=== PATIENT | male | born 1990 | race Hispanic/Latino ===

== ENCOUNTER 2019-09-14 11:27 | Emergency (ER) | payer OTHER ==
[~2019-09-14] VITALS: Ht 170.2 cm; Wt 113.4 kg
--- OUTSIDE RECORDS SUMMARY | ~2019-09-14 | XMS | Encounter Summary ---
Demographics + + + | Address | [address] | | | [place] [address] | + + + | Home Phone | | + + + | Preferred Language | Unknown | + + + | Marital Status | Unknown | + + + | Temple Affiliation | Unknown | + + + | Race | Unknown | + + + | Ethnic Group | Unknown | + + + Author + + + | Author | [facility] | | | and [place] | + + + | Organization | [facility] | | | and [place] | + + + | Address | Unknown | + + + | Phone | Unavailable | + + + Support + + +---------+ + | Name | Relationship | Address | Phone | + + +---------+ + | Clarita Swenson | ECON | Unknown | | + + +---------+ + Care Team Providers + +------+ + | Care Flavor Maker Name | Role | Phone | + +------+ + | No, Physician | PCP | Unavailable | + +------+ + Reason for Referral Diagnostic/Screening (Routine) + +--------+ + + + + | Status | Reason | Specialty | Diagnoses / | Referred By | Referred To | | | | | Procedures | Contact | Contact | + +--------+ + + + + | Authorized | | | Diagnoses | Julian, | [facility] | | | | | Dyspnea on | Abdulkadir , | [facility] | | | | | exertion | MD [address] | | | | | Spontaneous | [place] | [address] | | | | | ASD closure | [address] | [place], [place] | | | | | Procedures | [place], [place] | [address] | | | | | ECHO | [address] | Phone: | | | | | Complete | Phone: | [phone] | | | | | | [phone] | Fax: | | | | | | Fax: | [phone] | | | | | | [phone] | | + +--------+ + + + + Reason for Visit + + + | Reason | Comments | + + + | Follow-up | 6 weeks with tm and holter | + + + Evaluate & Treat (Routine) +--------+--------+ + + + + | Status | Reason | Specialty | Diagnoses / | Referred By | Referred To | | | | | Procedures | Contact | Contact | +--------+--------+ + + + + | Closed | | Cardiology | Diagnoses | [place], | [place], | | | | | | [facility] | Abdulkadir Lozada MD | | | | | Palpitations | [address] | [address] | | | | | Procedures | [address] | [place] | | | | | FOLLOW UP | [place], | [place] | | | | | | [place] [address] | [facility] [place] | | | | | | Phone: | [address] Phone: | | | | | | [phone] | [phone] | | | | | | Fax: | Fax: | | | | | | [phone] | [phone] | +--------+--------+ + + + + Encounter Details +--------+---------+ + + + | Date | Type | Department | Care Team | Description | +--------+---------+ + + + | 08/01/ | Office | [facility] | Abdulkadir Zhang, | Palpitations | | 2019 | Visit | CARDIOLOGY [place] | MD [address] | (Primary Dx); | | | | [address] | [place] [facility], | Dyspnea on exertion; | | | | [address] | [place] [address] | Chest pain, | | | | [place], [place] | [phone] | non-cardiac; | | | | [address] | | Depression, | | | | [phone] | | unspecified | | | | | | depression type; | | | | | | Preop cardiovascular | | | | | | exam; Spontaneous | | | | | | ASD closure | +--------+---------+ + + + Social History + +-------+ +--------+------+ | Tobacco Use | Types | Packs/Day | Years | Date | | | | | Used | | + +-------+ +--------+------+ | Never Smoker | | | | | + +-------+ +--------+------+ + +---+---+---+ | Smokeless Tobacco: | | | | | Never Used | | | | + +---+---+---+ + + +---------+ + | Alcohol Use | Drinks/Week | oz/Week | Comments | + + +---------+ + | Yes | | | | + + +---------+ + + + + + | Alcohol Habits | Answer | Date Recorded | + + + + | How often do you have a drink containing | Monthly or less | 06/06/2019 | | alcohol? | | | + + + + | How many drinks containing alcohol do you | Not asked | | | have on a typical day when you are | | | | drinking? | | | + + + + | How often do you have six or more drinks on | Not asked | | | one occasion? | | | + + + + + + + | Sex Assigned at | Date Recorded | | | | + + + | Not on file | | + + + + + + + | Job Start Date | Occupation | Industry | + + + + | Not on file | Not on file | Not on file | + + + + + + + + | Travel History | Travel Start | Travel End | + + + + + + | No recent travel history available. | + + documented as of this encounter Last Filed Vital Signs + + + + + | Vital Sign | Reading | Time Taken | Comments | + + + + + | Blood Pressure | 110/60 | 08/01/2019 3:32 PM | | | | | PST | | + + + + + | Pulse | 70 | 08/01/2019 3:32 PM | | | | | PST | | + + + + + | Temperature | - | - | | + + + + + | Respiratory Rate | - | - | | + + + + + | Oxygen Saturation | 97% | 08/01/2019 3:32 PM | | | | | PST | | + + + + + | Inhaled Oxygen | - | - | | | Concentration | | | | + + + + + | Weight | 112.7 kg (248 lb 6.4 | 08/01/2019 3:32 PM | | | | oz) | PST | | + + + + + | Height | 170.2 cm (5' 7") | 08/01/2019 3:32 PM | | | | | PST | | + + + + + | Body Mass Index | 38.9 | 08/01/2019 3:32 PM | | | | | PST | | + + + + + documented in this encounter Progress Notes Abdulkadir Zhang MD - 08/01/2019 3:10 PM PSTFormatting of this note might be different fro m the original. Subjective: Patient ID: Silverio Finch is a 28 y.o. male. Patient's medications, allergies, past medical, surgical, social and family histories were obtained and reviewed as appropriate. MI Sawyer this time accompanied by his mother, returned to the office for a follow up visit fo r his palpitations, which have been present "for as long as I can remember", but in the last 2-3 years, it has been much worse, to the point where he stated that he is unable to work b ecause of these symptoms. Previously, he worked doing "under the table manual labor". He d escribes lightheadedness and dyspnea with heavy exertion, and feeling "irregular heartbeats "with activities such as chopping or carrying wood, or walking up a "long flight of stairs". He also notes that his "heart starts acting up when I get stressed out ", citing traffic o r bills to pay. He also has atypical chest pain, describing sharp, fleeting pains in the le ft parasternal border, fifth-sixth intercostal space, that last 5 to 10 seconds, whereas pre viously, they lasted 1 to 2 seconds. He has never sought any rectal evaluation for these sy mptoms. 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 "they said I wouldn't make it through the night", "flat-lined a couple of times". 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 He was evaluated with a 4 8-hour Holter monitor and exercise stress test to try and reproduce his symptoms and make e diagnosis. Both were normal, and the symptoms he reported on his Holter (5 episodes of ch est pain/discomfort, 2 episodes of dizziness, 3 episodes palpitations with the chest discomf ort) all occurred in NSR. I heard an echocardiogram today, although I expect that he had an ASD that has closed spontaneously. He appears to have significant depression, which may be the major cause of his symptoms, was treated with medications for this problem approximately 10 years ago. ROS CONSTITUTIONAL: 40 lb weight decrease in 2 months 6045-4665, with gastroenteritis; denies recent fever, chills, night sweats, c/o fatigue, sleeps poorly NEUROLOGIC: No history of CVA, TIA, has Migraines, has "pulsating" right temporal pains, d enies seizures, had a syncopal event 2018 "from exhaustion", chopping frozen wood in the sno w, was unconscious 10 minutes. He has orthostatic dizziness, lightheadedness. No numbness, tingling, paresthesias. EYES: No amaurosis, diplopia, recent visual changes, cataracts or glaucoma ENT: Mild hearing loss, has occasional tinnitus, had mild epistaxis several times last wed, denies dysphagia ENDOCRINE: No history of diabetes. No history of thyroid disorders. He has a history of V itamin D Deficiency, no other endocrine problems. No excessive hunger, notes increased thir st. PULMONARY/SLEEP: He has Dyspnea on exertion, had SOB 06/05/19 while eating, also noted "aram rything was slanted to the right", 20 minutes later "everything started slanting to the left , eventually evened out" with 2 minutes of controlled breathing. He denies orthopnea, parox ysmal nocturnal dyspnea. No history of asthma, emphysema. ? history of pneumonia - he is no t sure. Denies significant snoring, has been told of apnea by his mother, 5-10 seconds and then gasps for air. He denies daytime somnolence. Sleep is not refreshing. He has insomni a, trouble falling asleep and staying asleep (uses the bathroom 1-3x per night). CARDIOVASCULAR: sharp, fleeting chest pain, as above. No history of CAD. No history of hea rt failure. No history of cardiac arrhythmias, but has noted Palpitations with exertion for several years, does not work because of this. He has a history of a heart Murmur, no histor y of rheumatic fever. No history of hypertension, hyperlipidemia. No edema, no claudicatio n symptoms. No h/o an AAA. --48-hour Holter (06/19/2019): NSR throughout, rare PACs, PVCs, no clinically significant ar rhythmias. His reported symptoms (5 episodes of chest pain/discomfort, 2 episodes of dizzin ess, 3 episodes palpitations with the chest discomfort) all occurred in NSR -- Exercise Stress Test (06/19/19): Normal. He exercised 7 minutes, 2 seconds, 10.1 METS, m ax HR 179 bpm, 92% MPHR, Max BP 138/61, DP 24,702, stopped due to fatigue and leg discomfort , no chest pain, no ST changes, no arrhythmias. Son treadmill score 7, low risk. GASTROINTESTINAL: No recent abdominal pain, nausea, vomiting or diarrhea, had gastroenteri tis Aug-Sep, 2017-. Denies PUD, melena, hematochezia, hepatitis. RENAL/: No history of kidney disease. No dysuria, hematuria, urinary urgency, hesitancy . HEMATOLOGY/ONCOLOGY: No h/o bleeding disorders, DVT, PE. Denies easy bruisability or ble eding. No history of anemia, transfusions. No history of cancer. MUSCULOSKELETAL: No myalgias, has left knee and right hip arthralgias. No history of rheu matologic or autoimmune diseases. CUTANEOUS: Right wrist and index finger rashes, no pruritus, lesions. PSYCHIATRIC: He has a history of Depression 2007-, was on medication, Anxiety, denies any other psychiatric problems. Past Medical History: Diagnosis Date Depression Heart murmur Palpitations Past Surgical History: Procedure Laterality Date GALLBLADDER SURGERY 2007 KNEE ARTHROSCOPY Left 2010 WISDOM TOOTH EXTRACTION Family History Problem Relation Age of Onset Alcohol abuse Mother Alcohol abuse Father Alcohol abuse Maternal Grandfather Arrhythmia Maternal Uncle Heart failure Maternal Uncle Coronary artery disease Maternal Uncle 56 [place] Liver disease Maternal Aunt Alcohol abuse Maternal Aunt Kidney disease Maternal Uncle Social History Socioeconomic History Marital status: Unknown Spouse name: Not on file Number of children: Not on file Years of education: Not on file Highest education level: Not on file Occupational History Occupation: unemployed, prior manual labor "under the table" Comment: because of his palpitations Social Needs Financial resource strain: Not on file Food insecurity: Worry: Not on file Inability: Not on file Transportation needs: Medical: Not on file Non-medical: Not on file Tobacco Use Smoking status: Never Smoker Smokeless tobacco: Never Used Substance and Sexual Activity Alcohol use: Yes Frequency: Monthly or less Drug use: Never Sexual activity: Not on file Lifestyle Physical activity: Days per week: Not on file Minutes per session: Not on file Stress: Not on file Relationships Social connections: Talks on phone: Not on file Gets together: Not on file Attends scientology service: Not on file Active member of club or organization: Not on file Attends meetings of clubs or organizations: Not on file Relationship status: Not on file Intimate partner violence: Fear of current or ex partner: Not on file Emotionally abused: Not on file Physically abused: Not on file Forced sexual activity: Not on file Other Topics Concern Not on file Social History Narrative Not on file Allergies Allergen Reactions Penicillins Anaphylaxis,Hives Intolerance No active intolerances/contraindications No current outpatient medications on file. No current facility-administered medications for this visit. Objective: BP 110/60 | Pulse 70 | Ht 1.702 m (5' 7") | Wt 112.7 kg (248 lb 6.4 oz) | SpO2 97% | B IA 38.90 kg/m PHYSICAL EXAM GENERAL: Well developed, well nourished, in no distress. Appears approximately stated age . HEENT: Normocephalic, atraumatic. EYES: PERRL, sclerae anicteric, no xanthelsasmas MOUTH: Oral mucosae moist, dentition adequate, no lesions noted NECK: No JVD, lymphadenopathy, thyromegaly, bruits. Carotid pulses are 2+ bilaterally LUNGS: Clear bilaterally, with no rales, rhonchi or wheezing noted, respirations unlabored HEART: Nondisplaced PMI, regular rate and rhythm, S1, S2 normal. No murmurs, rubs or gall ops noted. ABDOMEN: Soft, nontender, no organomegaly, masses or bruits. Bowel sounds are normal in a ll 4 quadrants. The abdominal aortic pulsation is not palpable. EXTREMITIES: No edema. Radial pulses 2+ bilaterally. Femoral pulses are 2+ bilaterally wi thout bruits. DP and PT pulses are 2+ bilaterally. SKIN: Warm and dry, capillary refill is normal, normal erythematous rash in the right wris t, no other lesions. Fairly prominent acne scars on the neck and face. NEUROLOGIC: Awake, alert and oriented x 3. No focal motor deficits. PSYCHIATRIC: Appropriate, affect appears flat Assessment: Silverio was seen today for follow-up. Diagnoses and all orders for this visit: Palpitations Dyspnea on exertion - ECHO Complete; Future Chest pain, non-cardiac Depression, unspecified depression type Preop cardiovascular exam Spontaneous ASD closure - ECHO Complete; Future Plan: Follow up PRN documented in this en counter Plan of Treatment + + +--------+ + + | Name | Type | Priori | Associated Diagnoses | Order Schedule | | | | ty | | | + + +--------+ + + | ECHO Complete | Echocardiog | Routin | Dyspnea on | Expected: | | | vanessa | e | exertion | 08/15/2019, Expires: | | | | | Spontaneous ASD | 08/01/2020 | | | | | closure | | + + +--------+ + + documented as of this encounter Visit Diagnoses + + | Diagnosis | + + | Palpitations - Primary | + + | Dyspnea on exertion Other dyspnea and respiratory abnormality | + + | Chest pain, non-cardiac Other chest pain | + + | Depression, unspecified depression type | + + | Preop cardiovascular exam Pre-operative cardiovascular examination | + + | 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
--- OUTSIDE RECORDS SUMMARY | ~2019-09-14 | XMS | Clinical Summary ---
Demographics + + + | Address | [address] | | | [place] [address] | + + + | Home Phone | | + + + | Preferred Language | Unknown | + + + | Marital Status | Unknown | + + + | Buddhist Affiliation | Unknown | + + + | Race | Unknown | + + + | Ethnic Group | Unknown | + + + Author + + + | Author | [facility] (Historical as of | | | 05-06-19) | + + + | Organization | [facility] (Historical as of | | | 05-06-19) | + + + | Address | Unknown | + + + | Phone | Unavailable | + + + Support + + +---------+ + | Name | Relationship | Address | Phone | + + +---------+ + | Clarita Swenson | ECON | Unknown | | + + +---------+ + Care Team Providers + +------+ + | Care Wiping Rag Washer Name | Role | Phone | + +------+ + | Lokesh Duran | PP | | + +------+ + Allergies Not on File Current Medications Not on file Active Problems Not on file Social History + +-------+ +--------+------+ | Tobacco Use | Types | Packs/Day | Years | Date | | | | | Used | | + +-------+ +--------+------+ | Never Assessed | | | | | + +-------+ +--------+------+ + + + | Sex Assigned at | Date Recorded | | | | + + + | Not on file | | + + + Plan of Treatment + + + + + | Health Maintenance | Due Date | Last Done | Comments | + + + + + | Vaccine: | | | | | Dtap/Tdap/Td (1 - | 1 | | | | Tdap) | | | | + + + + + | Vaccine: Influenza | | | | | (#1) | 9 | | | + + + + + Results Not on filefrom Last 3 Months Insurance + +--------+ +------+-------+ + | Payer | Benefi | Subscriber | Type | Phone | Address | | | t Plan | ID | | | | | | / | | | | | | | Group | | | | | + +--------+ +------+-------+ + | [employer] | YELLOW | | | | | | PLANS | [place] | | | | | + +--------+ +------+-------+ + | MEDICAID | [place] | [id number] | | | [address] | | | N | | | | [place] | | | [place] | | | | [address] | | | MEDICAL LAB SPECIALIST | | | | | + +--------+ +------+-------+ + + +--------+ +--------+ + + | Guarantor Name | Accoun | Relation to | Date | Phone | Billing Address | | | t Type | Patient | of | | | | | | | | | | + +--------+ +--------+ + + | [place] | Person | Self [birth year] | Home: | [address] | | [place] | [place] | | 1990 | [phone] [place] | | | [place] | | | [phone] | [address] | + +--------+ +--------+ + +"
--- OUTSIDE RECORDS SUMMARY | ~2019-09-14 | XMS | Encounter Summary ---
Demographics + + + | Address | [address] | | | [place] [address] | + + + | Home Phone | | + + + | Preferred Language | Unknown | + + + | Marital Status | Unknown | + + + | Zoroastrian Affiliation | Unknown | + + + | Race | Unknown | + + + | Ethnic Group | Unknown | + + + Author + + + | Author | [facility] | | | and [place] | + + + | Organization | [facility] | | | and [...] Team Providers + +------+ + | Care Appliance Mechanic Name | Role | Phone | + [...] | Authorized | | | Diagnoses | [place], | [facility] | | | | | Dyspnea on | Abdulkadir , | [facility] | | | | | exertion | MD [address] | | | | | Spontaneous | [place] | [address] | | | | | ASD closure | [address] | [place], [place] | | | | | Procedures | [place], [place] | [address] | | | | | ECHO | [address] | Phone: | | | | | Complete | Phone: | [phone] | | | | | | [phone] | Fax: | | | | | | Fax: | [phone] | | | | | | [phone] | | + +--------+ + + + [...] | | | | | Palpitations | [address] | [address] | | | | | Procedures | [address] | [place] | | | | | FOLLOW UP | [place], | [place] | | | | | | [place] [address] | [facility] [place] | | | | | | Phone: | [phone] Phone: | | | | | | [phone] | [phone] | | | | | | Fax: | Fax: | | | | | | [phone] | [phone] | +--------+--------+ + + + + Encounter Details +--------+---------+ + + + | Date | Type | Department | Care Team | Description | +--------+---------+ + + + | 08/01/ | Office | [facility] | Abdulkadir Zhang, | Palpitations | | 2019 | Visit | CARDIOLOGY [place] | MD [address] | (Primary Dx); | | | | [address] | [place] [facility], | Dyspnea on exertion; | | | | [address] | [place] [address] | Chest pain, | | | | [place], [place] | [phone] | non-cardiac; | | | | [address] | | Depression, | | | | [phone] | | unspecified | | | | [...] 40 lb weight decrease in 2 months 7053-8724, with gastroenteritis; denies recent fever, chills, night [...] Uncle Coronary artery disease Maternal Uncle 56 [place] Liver disease Maternal Aunt Alcohol abuse Maternal [...] file Gets together: Not on file Attends mormonism service: Not on file Active member of [...] 6.4 oz) | SpO2 97% | B CO 38.90 kg/m PHYSICAL EXAM GENERAL: Well developed, [...]
--- OUTSIDE RECORDS SUMMARY | ~2019-09-14 | XMS | Encounter Summary ---
Demographics + + + | Address | [address] | | | [place] [address] | + + + | Home Phone | | + + + | Preferred Language | Unknown | + + + | Marital Status | Unknown | + + + | Yazdanism Affiliation | Unknown | + + + | Race | Unknown | + + + | Ethnic Group | Unknown | + + + Author + + + | Author | [facility] | | | and [place] | + + + | Organization | [facility] | | | and [...] Team Providers + +------+ + | Care Pharmaceutical Sales Name | Role | Phone | + +------+ + | No, Physician | PCP | Unavailable | + +------+ + Reason for Visit + + + | Reason | Comments | + + + | New Patient | palpitations | + + + Evaluate & Treat (Routine) + +--------+ + + + + | Status | Reason | Specialty | Diagnoses / | Referred By | Referred To | | | | | Procedures | Contact | Contact | + +--------+ + + + + | Authorized | | | Diagnoses | [place], | [place], | | | | | | [facility] | Abdulkadir Lozada MD | | | | | Palpitations | [address] | [address] | | | | | Procedures | ERIN [address]YS | [address]ACIA [address]EVE | | | | | CONSULT | [place] | [place] | | | | | | [place] [address] | [place], [place] | | | | | | Phone: | [address] Phone: | | | | | | [phone] | [phone] | | | | | | Fax: | Fax: | | | | | | [phone] | [phone] | + +--------+ + + + + Encounter Details +--------+---------+ + + + | Date | Type | Department | Care Team | Description | +--------+---------+ + + + | 06/06/ | Office | [facility] | Abdulkadir Zhang, | Palpitations | | 2019 | Visit | CARDIOLOGY [place] | MD [address] | (Primary Dx); Chest | | | | [address] | [place] [facility], | pain, unspecified | | | | [address] | [place] [address] | type; Atypical chest | | | | [place], [place] | [phone] | pain; Dyspnea on | | | | [address] | | exertion; | | | | [phone] | | Depression, | | | | | | unspecified | | | | | | depression type | +--------+---------+ + + + Social History [...] + + + | Blood Pressure | 130/74 | 06/06/2019 1:44 PM | | | | | PDT | | + + + + + | Pulse | 80 | 06/06/2019 1:44 PM | | | | | PDT | | + + + + + | Temperature | - | - | | + + + + + | Respiratory Rate | 18 | 06/06/2019 1:44 PM | | | | | PDT | | + + + + + | Oxygen Saturation | 95% | 06/06/2019 1:44 PM | | | | | PDT | | + + + + + | Inhaled Oxygen | - | - | | | Concentration | | | | + + + + + | Weight | 112.8 kg (248 lb | 06/06/2019 1:44 PM | | | | 11.2 oz) | PDT | | + + + + + | Height | 170.2 cm (5' 7") | 06/06/2019 1:44 PM | | | | | PDT | | + + + + + | Body Mass Index | 38.95 | 06/06/2019 1:44 PM | | | | | PDT | | + + + + + documented in this encounter Progress Notes Abdulkadir Zhang MD - 06/06/2019 1:30 PM PDTFormatting of this note might be different fro m the original. Subjective: Patient ID: Silverio Finch is a 28 y.o. male. HPI Patient's medications, allergies, past medical, surgical, social and family histories were obtained and reviewed as appropriate. Silverio was referred for palpitations. This has been present "for as long as I can remember "but in the last 2-3 years, it has been much worse, to the point where he is unable to work because of these symptoms. Previously, he worked doing "under the table manual labor". He describes lightheadedness and dyspnea with heavy exertion, and feeling "irregular heartbeat s "with activities such as chopping or carrying wood, or walking up a "long flight of stairs ". He also notes that his "heart starts acting up when I get stressed out ", citing traffic or bills to pay. He also has atypical chest pain, describing sharp, fleeting pains in the left parasternal border, fifth-sixth intercostal space, that last 5 to 10 seconds, whereas p reviously, they lasted 1 to 2 seconds. He has never sought any rectal evaluation for these symptoms. 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 "they said I wouldn't make it through the night", "flat-lined a couple of times". 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 Will be evaluated with a 24-hour Holter monitor and exercise stress test to try and reproduce his symptoms and make t he diagnosis. I considered, but deferred ordering an echocardiogram at this time. I will s ee him back after the above tests. Also appears to have significant depression, which may b e the major cause of his symptoms, was treated with medications for this problem approximate ly 10 years ago. Is also looking at having surgery on his left lower jaw, but does not know why this is needed. Past Medical History: Diagnosis Date Heart murmur Palpitations Past Surgical History: Procedure Laterality Date GALLBLADDER SURGERY 2008 KNEE ARTHROSCOPY Left 2010 WISDOM TOOTH EXTRACTION Family History Problem Relation Age of Onset Alcohol abuse Mother Alcohol abuse Father Alcohol abuse Maternal Grandfather Arrhythmia Maternal Uncle Heart failure Maternal Uncle Coronary artery disease Maternal Uncle 56 [place] Liver disease Maternal Aunt Alcohol abuse Maternal Aunt Kidney disease Maternal Uncle Social History Socioeconomic History Marital status: Unknown Spouse name: Not on file Number of children: Not on file Years of education: Not on file Highest education level: Not on file Social Needs Financial resource strain: Not on file Food insecurity - worry: Not on file Food insecurity - inability: Not on file Transportation needs - medical: Not on file Transportation needs - non-medical: Not on file Occupational History Occupation: unemployed, prior manual labor "under the table" Comment: because of his palpitations Tobacco Use Smoking status: Never Smoker Smokeless tobacco: Never Used Substance and Sexual Activity Alcohol use: Yes Frequency: Monthly or less Drug use: Never Sexual activity: Not on file Other Topics Concern Not on file Social History Narrative Not on file Allergies Allergen Reactions Penicillins Anaphylaxis,Hives Intolerance No active intolerances/contraindications Current Outpatient Medications Medication Sig Dispense Refill melatonin 200 mcg TABS Take 400 mcg by mouth nightly as needed. No current facility-administered medications for this visit. ROS CONSTITUTIONAL: 40 lb weight decrease in 2 months 3004-1782, with gastroenteritis; denies recent fever, chills, night [...] claudicatio n symptoms. No h/o an AAA. GASTROINTESTINAL: No recent abdominal pain, nausea, vomiting or diarrhea, had gastroenteri tis Sep, 2017-. Denies PUD, melena, hematochezia, hepatitis. RENAL/: [...] medication, Anxiety, denies any other psychiatric problems. Objective: BP 130/74 | Pulse 80 | Resp 18 | Ht 1.702 m (5' 7") | Wt 112.8 kg (248 lb 11.2 oz) | S pO2 95% | BMI 38.95 kg/m PHYSICAL EXAM GENERAL: Well developed, well [...] motor deficits. PSYCHIATRIC: Appropriate, affect appears flat EKG: Normal sinus rhythm, rate 75, normal EKG, no significant change compared to his previo us tracing done 10/12/2018. Assessment: Silverio was seen today for new patient. Diagnoses and all orders for this visit: Palpitations - ECG 12 lead - Stress ECG; Future - Holter monitor - 24 hour; Future Chest pain, unspecified type - ECG 12 lead Atypical chest pain - Stress ECG; Future - Holter monitor - 24 hour; Future Dyspnea on exertion - Stress ECG; Future - Holter monitor - 24 hour; Future Depression, unspecified depression type Plan: Follow up after the above tests. documented in this encounter Plan of Treatment + +------+--------+ + + | Name | Type | Priori | Associated Diagnoses | Order Schedule | | | | ty | | | + +------+--------+ + + | Stress ECG | ECG | Routin | Palpitations | Expected: | | | | e | Atypical chest pain | 06/13/2019, Expires: | | | | | Dyspnea on exertion | 06/06/2020 | + +------+--------+ + + | Holter monitor - 24 | ECG | Routin | Palpitations | Expected: | | hour | | e | Atypical chest pain | 06/13/2019, Expires: | | | | | Dyspnea on exertion | 06/06/2020 | + +------+--------+ + + documented as of this encounter Procedures + +--------+ + + + | Procedure Name | Priori | Date/Time | Associated Diagnosis | Comments | | | ty | | | | + +--------+ + + + | ECG 12 LEAD | Routin | 06/06/2019 | Palpitations | Results for this | | | e | 1:50 PM | Chest pain, | procedure are in the | | | | PDT | unspecified type | results section. | + +--------+ + + + documented in this encounter Results ECG 12 lead (06/06/2019 1:50 PM PDT) + + + + + + | Component | Value | Ref Range | Performed | Pathologist | | | | | At | Signature | + + + + + + | VENTRICULAR | 75 | BPM | [facility] | | | RATE EKG | | | | | + + + + + + | ATRIAL RATE | 75 | BPM | [facility] | | + + + + + + | P-R | 146 | ms | [facility] | | | INTERVAL | | | | | + + + + + + | QRS | 92 | ms | [facility] | | | DURATION | | | | | + + + + + + | Q-T | 380 | ms | [facility] | | | INTERVAL | | | | | + + + + + + | Q-T | 424 | ms | [facility] | | | INTERVAL | | | | | | (CORRECTED) | | | | | + + + + + + | P WAVE AXIS | 45 | degrees | [facility] | | + + + + + + | QRS AXIS | 31 | degrees | [facility] | | + + + + + + | T AXIS | 19 | degrees | [facility] | | + + + + + + | INTERPRETAT | Normal sinus | | [facility] | | | ION TEXT | rhythmNormal ECGNo | | | | | | previous ECGs | | | | | | availablePlease refer to | | | | | | Providers office visit | | | | | | note for Providers | | | | | | Interpretation.Confirmed | | | | | | by [facility] [place] Read Only, | | | | | | [facility] Anastacia ([id number]), | | | | | | city editor Isiah Abbott | | | | | | ([id number]) on 06/06/2019 | | | | | | 2:24:04 PM | | | | + + + + + + + + | Specimen | + + | | + + + + + | Narrative | Performed At | + + + | | | + + + + +---------+ + + | Performing | Address | City/State/Zipcode | Phone Number | | Organization | | | | + +---------+ + + | [facility] | | | | + +---------+ + + documented in this encounter Visit Diagnoses + + | Diagnosis | + + | Palpitations - Primary | + + | Chest pain, unspecified type | + + | Atypical chest pain Other chest pain | + + | Dyspnea on exertion Other dyspnea and respiratory abnormality | + + | Depression, unspecified depression type | + + documented in this encounter
--- OUTSIDE RECORDS SUMMARY | ~2019-09-14 | XMS | Encounter Summary ---
Demographics + + + | Address | [address] | | | [place] [address] | + + + | Home Phone | | + + + | Preferred Language | Unknown | + + + | Marital Status | Unknown | + + + | Restorationism Affiliation | Unknown | + + + | Race | Unknown | + + + | Ethnic Group | Unknown | + + + Author + + + | Author | [facility] | | | and [place] | + + + | Organization | [facility] | | | and [...] Team Providers + +------+ + | Care Costume Rental Clerk Name | Role | Phone | + [...] | | | | | Palpitations | [address] | [address] | | | | | Procedures | [address] | [address]ACIA [address] | | | | | CONSULT | [place] | [place] [address] | | | | | | [place] [address] | [place], [place] | | | | | | Phone: | [phone] Phone: | | | | | | [phone] | [phone] | | | | | | Fax: | Fax: | | | | | | [phone] | [phone] | + +--------+ + + + + Encounter Details +--------+---------+ + + + | Date | Type | Department | Care Team | Description | +--------+---------+ + + + | 06/06/ | Office | [facility] | Abdulkadir Zhang, | Palpitations | | 2019 | Visit | CARDIOLOGY [place] | MD [address] | (Primary Dx); Chest | | | | [address] | [place] [facility], | pain, unspecified | | | | [address] | [place] [address] | type; Atypical chest | | | | [place], [place] | [phone] | pain; Dyspnea on | | | | [address] | | exertion; | | | | [phone] | | Depression, | | | | [...] Uncle Coronary artery disease Maternal Uncle 56 [place] Liver disease Maternal Aunt Alcohol abuse Maternal [...] 40 lb weight decrease in 2 months 0774-1978, with gastroenteritis; denies recent fever, chills, night [...] | | | | | by [facility] [place] [facility], | | | | | | [facility] Anastacia ([id number]), | | | | | | editor in chief Isiah Abbott | | | | | | ([phone]) on 06/06/2019 | | | | | [...]
--- OUTSIDE RECORDS SUMMARY | ~2019-09-14 | XMS | Clinical Summary ---
Demographics + + + | Address | [address] | | | [place] [address] | + + + | Home Phone | | + + + | Preferred Language | Unknown | + + + | Marital Status | Unknown | + + + | Mandaen Affiliation | Unknown | + + + | Race | Unknown | + + + | Ethnic Group | Unknown | + + + Author + + + | Author | [facility] | | | and [place] | + + + | Organization | [facility] | | | [...] Team Providers + +------+ + | Care Brass Wind Instrument Maker Name | Role | Phone | + +------+ + | No, Physician | PCP | Unavailable | + +------+ + Allergies + + + + + + | Active Allergy | Reactions | Severity | Noted | Comments | | | | | Date | | + + + + + + | Penicillins | Anaphylaxis, Hives | High | 06/06/20 | | | | | | 19 | | + + + + + + Medications No known medications Active Problems + + + | Problem | Noted Date | + + + | Depression | | + + + Encounters +--------+---------+ + + + | Date | Type | Specialty | Care Team | Description | +--------+---------+ + + + | 08/01/ | Office | Cardiology | Abdulkadir Zhang, | Palpitations | | 2019 | Visit | | MD | (Primary Dx); | | | | | | Dyspnea on exertion; | | | | | | Chest pain, | | | | | | non-cardiac; | | | | | | Depression, | | | | | | unspecified | | | | | | depression type; | | | | | | Preop cardiovascular | | | | | | exam; Spontaneous | | | | | | ASD closure | +--------+---------+ + + + from Last 3 Months Family History + + +------+ + | Medical History | Relation | Name | Comments | + + +------+ + | Alcohol abuse | Father | | | + + +------+ + | Alcohol abuse | Maternal | | | | | Aunt | | | + + +------+ + | Liver disease | Maternal | | | | | Aunt | | | + + +------+ + | Alcohol abuse | Maternal | | | | | Grandfath | | | | | er | | | + + +------+ + | Arrhythmia | Maternal | | | | | Uncle | | | + + +------+ + | Coronary artery | Maternal | | [place] | | disease | Uncle | | | + + +------+ + | Heart failure | Maternal | | | | | Uncle | | | + + +------+ + | Kidney disease | Maternal | | | | | Uncle | | | + + +------+ + | Alcohol abuse | Mother | | | + + +------+ + + +------+ + + | Relation | Name | Status | Comments | + +------+ + + | Brother | | Alive | | + +------+ + + | Brother | | Alive | | + +------+ + + | Father | | Alive | | + +------+ + + | Maternal Aunt | | | | + +------+ + + | Maternal Grandfather | | | | + +------+ + + | Maternal Uncle | | | | + +------+ + + | Maternal Uncle | | | | + +------+ + + | Mother | | Alive | | + +------+ + + | Sister | | Alive | | + +------+ + + Social History + +-------+ +--------+------+ [...] recent travel history available. | + + Last Filed Vital Signs + + + [...] | | + + + + + Plan of Treatment + + + + + | Health Maintenance | Due Date | Last Done | Comments | + + + + + | Vaccine: | | | | | Dtap/Tdap/Td (1 - | 3 | | | | Tdap) | | | | + + + + + | Vaccine: Influenza | | | | | (#1) | 9 | | | + + + + + Procedures + +--------+ + + + | Procedure Name | Priori | Date/Time | Associated Diagnosis | Comments | | | ty | | | | + +--------+ + + + | ARRHYTHMIA MONITOR - | | 06/22/2019 | | Results for this | | EXTERNAL SCAN | | 12:00 AM | | procedure are in the | | | | PDT | | results section. | + +--------+ + + + | ARRHYTHMIA MONITOR - | | 06/22/2019 | | Results for this | | EXTERNAL SCAN | | 12:00 AM | | procedure are in the | | | | PDT | | results section. | + +--------+ + + + | ARRHYTHMIA MONITOR - | | 06/22/2019 | | Results for this | | EXTERNAL SCAN | | 12:00 AM | | procedure are in the | | | | PDT | | results section. | + +--------+ + + + from Last 3 Months Results ARRHYTHMIA MONITOR - EXTERNAL SCAN (06/22/2019 12:00 AM PDT)Only the most recent of 3 resul ts within the time period is included. + + + | Narrative | Performed At | + + + | Ordered by an | | | unspecified provider. | | + + + from Last 3 Months Insurance + +--------+ +--------+ +---------+--------+ | Payer | Benefi | Subscriber | Effect | Phone | Address | Type | | | t Plan | ID | destini | | | | | | / | | Dates | | | | | | Group | | | | | | + +--------+ +--------+ +---------+--------+ | [employer] | [employer] | [id number] | | [phone] | | Medica | | MEDICAID HMO | HEALTH | | 019-Pr | 1 | | id | | | MDCD | | esent | | | | | | [place]MO [place] | | | | | | + +--------+ +--------+ +---------+--------+ | HEALTH | [employer] | [phone] | 03/20/20 | | | Indemn | | SERVICE | YELLOW | | 19-Pre | | | ity | | | HAWK | | sent | | | | + +--------+ +--------+ +---------+--------+ + +--------+ +--------+ + + | Guarantor Name | Accoun | Relation to | Date | Phone | Billing Address | | | t Type | Patient | of | | | | | | | | | | + +--------+ +--------+ + + | Silverio Finch | Person | Self [birth year] | [address] | | [place] | [place] | | 1990 | [phone] | [place] | | | [place] | | | 9 (Home) | [address] | + +--------+ +--------+ + + Advance Directives + + + + + | Type | Date Recorded | Patient | Explanation | | | | Process Assistant | | + + + + + | Power of | | | | | Aco Coordinator | | | | + + + + + | Advance | | | | | Directive | | | | + + + + +
--- OUTSIDE RECORDS SUMMARY | ~2019-09-14 | XMS | Clinical Summary ---
Demographics + + + | Address | [address] | | | [place] [address] | + + + | Home Phone | | + + + | Preferred Language | Unknown | + + + | Marital Status | Unknown | + + + | Mu-Ism Affiliation | Unknown | + + + | Race | Unknown | + + + | Ethnic Group | Unknown | + + + Author + + + | Author | [facility] | | | and [place] | + + + | Organization | [facility] | | | and [...] Team Providers + +------+ + | Care Shield Installer Name | Role | Phone | + [...] | Coronary artery | Maternal | | [place] | | disease | Uncle | | [...] | [employer] | MODA | [id number] | | [phone] | | Medica | | MEDICAID HMO | HEALTH | | 019-Pr | 1 | | id | | | MDCD | | esent | | | | | | HMO [place] | | | | | | + +--------+ +--------+ +---------+--------+ | HEALTH | IHS | [phone] | 03/20/20 | | | Indemn | [...] Person | Self | [birth year] | | [address] | | [place] | [place] | | 1990 | [phone] | [place] | | | [place] | | | 9 (Home) | [address] | + +--------+ +--------+ + + Advance Directives + + + + + | Type | Date Recorded | Patient | Explanation | | | | Library Clerk | | + + + + + | Power of | | | | | Bioinformatics Assistant | | | | + + + + + | Advance | | | | | Directive | | | | + + + + +
--- OUTSIDE RECORDS SUMMARY | ~2019-09-14 | XMS | Clinical Summary ---
Demographics + + + | Address | [address] | | | [place] [address] | + + + | Home Phone | | + + + | Preferred Language | Unknown | + + + | Marital Status | Unknown | + + + | Yazdanism Affiliation | Unknown | + + + | Race | Unknown | + + + | Ethnic Group | Unknown | + + + Author + + + | Author | [facility] (Historical as of | | | 05-06-19) | + + + | Organization | [facility] (Historical as of | | | 05-06-19) [...] Team Providers + +------+ + | Care Levee Superintendent Name | Role | Phone | + [...] | | + +--------+ +------+-------+ + | [facility] | YELLOW | | | | | | PLANS | HAWK | | | | | + +--------+ +------+-------+ + | MEDICAID | [place] | [id number] | | | [address] | | | [place] | | | | [place] | | | [place] | | | | [address] | | | FUR DRESSING SUPERVISOR | | | | | + +--------+ [...] | Self [birth year] | Home: | [address] | | [place] | [place] | | 1990 | [phone] [place] | | | [place] | | [phone] | [address] | + +--------+ +--------+ + +"
--- OUTSIDE RECORDS SUMMARY | 2019-09-14 11:30 | XMS ---
PreManage Notification: [facility] Security Balloon Sander Events No recent Security Events currently on file CRITERIA MET - [facility] There are no care providers on record at this time. Keesha has no Care Guidelines for this patient. Shlomo VISIT COUNT (12 MO.) 1 VANIA Amin TOTAL 1 NOTE: Visits indicate total known visits. ED/UCC VISIT TRACKING (12 MO.) 09/14/2019 11:27 VANIA Kwon [place] TYPE: Emergency COMPLAINT: - ABD PAIN INPATIENT VISIT TRACKING (12 MO.) No inpatient visits to display in this time frame [email or web address]
[2019-09-14] MEDS ORDERED: ONDANSETRON ODT8 MG PO (15:10)
[2019-09-14] MEDS ORDERED: OMEPRAZOLE20 MG PO (15:10)
== END 2019-09-14 15:33 | disposition home or self-care (01) ==
LOC: ED 11:27
DX: K29.00 Acute gastritis without bleeding (principal)
CPT/HCPCS: 74176; 80053; 81001; 83690; 85025; 96361; 96374; 96375; 99284-25; C9113; J2405; J7030

== ENCOUNTER 2021-08-16 07:10 | Emergency (ER) | payer OTHER ==
[~2021-08-16] VITALS: Ht 170.2 cm; Wt 113.4 kg
[~2021-08-16 07:10] MED LIST: OMEPRAZOLE20 MG PO; ONDANSETRON ODT8 MG PO
[2021-08-16] MEDS ORDERED: FAMCICLOVIR500 MG PO (07:35)
--- NOTE | 2021-08-16 18:55 | EKG ---
[facility] [address] [place], [place] [address] Signed Normal sinus rhythm Normal ECG No previous ECGs available Confirmed by PHILLIP MERRILL DO ([id number]) on 08/16/2021 6:54:49 PM Electronically Signed By: PHILLIP MERRILL DO 08/16/21 1855 PATIENT NAME: BEST BROOKS Electrocardiogram DATE OF : [birth year] PHYSICIAN: PHILLIP MERRILL DO REPORT #: [id number] REPORT IS CONFIDENTIAL AND NOT TO BE RELEASED WITHOUT AUTHORIZATION
== END 2021-08-16 07:42 | disposition home or self-care (01) ==
LOC: ED 07:10
DX: B02.9 Zoster without complications (principal); Z88.0 Allergy status to penicillin; Z79.899 Other long term (current) drug therapy
CPT/HCPCS: 93005; 93010; 99284-25